=== PATIENT | female | born 1995 | race African-American/Black ===

== ENCOUNTER 2022-02-17 06:09 | Emergency (ER) | payer OTHER ==
[~2022-02-17] VITALS: Ht 167.6 cm; Wt 61.2 kg
== END 2022-02-17 11:16 | disposition home or self-care (01) ==
LOC: ER 06:09
DX: R53.81 Other malaise (principal); R68.83 Chills (without fever); R51.9 Headache, unspecified; Z20.822 Contact with and (suspected) exposure to COVID-19